=== PATIENT | female | born 2000 | race Two or more races ===

== ENCOUNTER 2024-05-29 23:26 | Emergency (ER) | payer MEDICAID ==
[~2024-05-29] VITALS: Ht 157.5 cm; Wt 59.1 kg
[2024-05-30 00:20] VITALS: BP 113/72; PULSE 70; RESP 15; TEMP 98.3; O2SAT 99
== END 2024-05-30 00:23 | disposition home or self-care (01) ==
LOC: ER 23:27
DX: R07.9 Chest pain, unspecified (principal); R00.2 Palpitations
CPT/HCPCS: 93005; 99283

== ENCOUNTER 2025-07-13 00:42 | Emergency (ER) | payer MEDICAID ==
[~2025-07-13] VITALS: Ht 157.5 cm; Wt 67.8 kg
[2025-07-13 00:43] VITALS: TEMP 96.8
--- NOTE | 2025-07-13 01:11 | Physician Documentation ---
History of Present Illness ~ Chief Complaint: Abdominal Pain Stated Complaint: FALL/ABD PAIN Time Seen by MD: 01:08 HPI Patient presents to the emergency room with right lower quadrant abdominal tenderness. Onset this evening. No prior instances. She is mid cycle. No p ossibility of being . She has had nothing for the pain but she did try Pepto-Bismol. No nausea. Bowel movements regular. Urination regular. Medication Reconciliation Allergies: Coded Allergies: No Known Allergies (Unverified , 07/13/25) Review of Systems ROS All review of systems negative except as per HPI Physical Exam Vital Signs: Temperature: 96.8, Source: Temporal, Heart Rate: 85, Respiratory Rate: 15, BP: 138/82, Pulse Oximetry: 97, Weight: 67.800 Physical Exam General: Patient is awake, alert, oriented x4 in no acute distress and well appearing.~ Head: Normocephalic and atraumatic. Eyes: Conjunctival normal. EOMI. PERRL. ENT: Mucous membranes moist. Neck: Supple, trachea is midline. Chest: Clear to auscultation bilaterally without rales, rhonchi, or wheezes. There is no accessory muscle use or retractions. Cardiac: RRR without murmurs, gallops, or rubs. Abd: Soft, nondistended, positive tenderness to palpation to right lower quadrant Progress Results/Orders Results/Orders Orders - PAWAN DUONG MD Cult Urine + [place] [address] (07/13/25 03:01) Completed Orders - PAWAN DUONG MD Cbc/Diff (07/13/25 01:16) Lipase (07/13/25 01:16) Hcg, Ur Ql (07/13/25 01:16) BMP (07/13/25 01:16) Procalcitonin (07/13/25 01:16) Ibuprofen Tablet (Motrin Tablet) (07/13/25 01:20) Acetaminophen 325mg Tablet (Tylenol Tabl (07/13/25 01:20) Ua W/Microscopic, Cult If Ind (07/13/25 02:03) Medications Received in ER Medications (Trade) Dose Ordered Sig/Suraj Route PRN Reason Start Time Stop Time Status Last Admin Dose Admin (Motrin tablet) 800 mg ONCE ONCE PO 07/13/25 01:20 07/13/25 01:21 DC 07/13/25 01:40 400 MG Vital Signs 07/13/25 07/13/25 07/13/25 07/13/25 00:43 01:46 01:58 02:34 Temp 96.8 Pulse 85 73 57 Resp 15 17 15 16 B/P (MAP) 138/82 108/65 (79) 110/59 (76) Pulse Ox 97 97 100 O2 Flow Rate 0 Laboratory Tests Test 07/13/25 01:23 07/13/25 02:03 White Blood Count 15.0 H Red Blood Count 4.74 Hemoglobin 12.5 Hematocrit 38.4 Mean Corpuscular Volume 81.0 Mean Corpuscular Hemoglobin 26.3 L Mean Corpuscular Hemoglobin Concent 32.5 L Red Cell Distribution Width 13.7 Platelet Count 219 Mean Platelet Volume 9.9 Neutrophils (%) (Auto) 73.1 Lymphocytes (%) (Auto) 18.0 L Monocytes (%) (Auto) 7.6 Eosinophils (%) (Auto) 1.2 Basophils (%) (Auto) 0.1 Neutrophils # (Auto) 11.0 H Lymphocytes # (Auto) 2.7 Monocytes # (Auto) 1.1 H Eosinophils # (Auto) 0.2 Basophils # (Auto) 0.0 CBC Comment Sodium Level 139 Potassium Level 4.0 Chloride Level 105 Carbon Dioxide Level 28.5 Anion Gap 6 L Blood Urea Nitrogen 15 Creatinine 0.68 Estimated GFR/1.73 m2 > 90 BUN/Creatinine Ratio 22.1 H Glucose Level 98 Calcium Level 8.9 Albumin 3.7 Lipase 43 Procalcitonin < 0.05 Chemistry Comments Urine Specimen Description Cln catch midstream Urine Color Yellow Urine Clarity Clear Urine pH 6.5 Urine Specific [place] 1.010 Urine Protein Negative Urine Glucose (UA) Negative Urine Ketones Trace H Urine Occult Blood Negative Urine Nitrite Negative Urine Bilirubin Negative Urine Urobilinogen 0.2 Urine Leukocyte Esterase Trace H Urine RBC None seen Urine WBC 0-4 Urine Squamous Epithelial Cells Few Urine Bacteria Few Urine Culture Indicated Indicated Volume Urine Centrifuged 10 ml Urine HCG, Qualitative Negative Urine Comment Medical Decision Making Findings Patient presented to the emergency room with right lower quadrant pain that has per HPI. Differentials include but are not limited to appendicitis, gas, diverticulitis, ovarian pathology therefore emergent labs ordered. Elevation of white blood cell count noted however negative procalcitonin. Patient has clinically improved in his now sleeping in her room. Utilizing shared decision- making and discussing the risks and benefits of CT scan we are opting for conservative management as she is improving. ER precautions regarding worsening of symptoms or fevers discussed. No adnexal tenderness and I do not suspect acute ovarian pathology. Departure Disposition: HOME / SELF CARE / HOMELESS Impression: Primary Impression: Abdominal pain Condition: Improved Discharge Instructions: Abdominal Pain (Nonspecific) Referrals: NO PRIMARY CARE PROVIDER (PCP) Signature Scribe Signature: No scribe Attestation: The note accurately reflects work and decisions made by me.Pawan Duong MD 07/13/25 03:10 PAWAN DUONG MD Jul 13, 2025 01:11
[2025-07-13 01:32] LABS: MEAN PLATELET VOLUME 9.9 FL (7.4-10.4); RED CELL DISTRIBUTION WIDTH 13.7 % (11.5-14.5)
[2025-07-13 01:39] LABS: CREATININE 0.68 MG/DL (0.40-0.90); TOTAL CARBON DIOXIDE 28.5 MMOL/L (24-32); eCRCL 99 ML/MIN; eGFR > 90 ML/MIN
[2025-07-13] MEDS: ibuprofen tablet 400 MG TABLET PO ONE (01:40)
[2025-07-13 02:40] LABS: URINE HCG NEGATIVE (NEG)
[2025-07-13 02:52] LABS: LEUKOCYTE ESTERASE ,URINE TRACE (Neg); NITRITES, URINE NEGATIVE (Neg); OCCULT BLOOD,URINE NEGATIVE (Neg)
[2025-07-13 03:00] LABS: UA COLLECTION TYPE CLN CATCH MIDSTREAM
[2025-07-13 03:05] LABS: SQUAMOUS EPITHELIAL CELL,UR FEW /LPF (FEW)
[2025-07-13 04:00] VITALS: BP 94/46; PULSE 69; RESP 17; O2SAT 98
== END 2025-07-13 04:03 | disposition home or self-care (01) ==
LOC: ER 00:42
DX: R10.813 Right lower quadrant abdominal tenderness (principal)
CPT/HCPCS: 36415; 80048; 81001; 81025; 83690; 84145; 85025; 87088; 99283